=== PATIENT | male | born 1985 | race Two or more races ===

== ENCOUNTER 2017-03-27 23:34 | Emergency (ER) | payer BC, MEDICAID ==
[2017-03-28] MEDS ORDERED: NS 0.9% 1000 ML* 2,000 ML IV ONE (01:17)
[2017-03-28] MEDS ORDERED: Ketorolac INJ* 30 MG/ML 1 ML VIAL IV ONE (01:17)
[2017-03-28] MEDS ORDERED: Ondansetron INJ* 2 MG/ML VIAL IV ONE (01:17)
[2017-03-28 03:21] LABS: Hematocrit 40 % (42-52); Hemoglobin 13.9 g/dl (14.0-18.0); Mean Corpuscular HGB Conc 35 g/dl (31-36); Mean Corpuscular Hemoglobin 27 pg (27-31); Mean Corpuscular Volume 78 fL (80-94); Mean Platelet Volume 9 um3 (7.4-10.4); Red Blood Count 5.15 10^6/ul (4.0-5.4); Red Cell Distribution Width 13 % (10.5-15); White Blood Count 9.5 10^3/ul (3.5-10.8)
[2017-03-28] MEDS ORDERED: Cyclobenzaprine TAB* 10 MG PO ONE (03:32)
[2017-03-28 03:35] LABS: BUN/Creatinine Ratio 11.3 (8-20); C Reactive Protein 1.07 mg/L (< 5.00); EGFR African American 106.2 (>60); EGFR Non-African American 82.6 (>60); Globulin 2.4 g/dL (2-4); Potassium 3.5 mmol/L (3.5-5.0); Total Bilirubin 0.5 mg/dL (0.2-1.0); Total Protein 6.4 g/dL (6.4-8.9)
[2017-03-28 03:57] LABS: Urine Bilirubin Negative (Negative); Urine Glucose Negative (Negative); Urine Nitrite Negative (Negative)
--- NOTE | 2017-03-28 04:05 | ED ---
Blair Chávez Angela, scribed for Demetra Hauser MD on 03/28/17 at 0118 . Back Pain - HPI Summary HPI Summary: This pt is a 31 y/o male presenting to [facility] c/o intermittent left low back pain , worse today. Over the last 3 weeks he has had dysuria, described as lightly achy. Today, pt reports 2 episodes of sharp pain. His pain is aggravated with movements. Pt denies unprotected sex with female partners. He notes his urine is dark. Pt currently has no PCP. Pt smoked marijuana and drinks alcohol socially. - History of Current Complaint Chief Complaint: EDFlankPain Stated Complaint: LEFT SHARP FLANK PAIN Time Seen by Provider: 03/28/17 01:13 Hx Obtained From: Patient Onset/Duration: Lasting Weeks Onset/Duration: Started Weeks Ago Timing: Lasting Weeks Pain Intensity: 4 Character: Aching Aggravating Symptom(s): Movement Alleviating Symptom(s): Nothing Associated Signs And Symptoms: Positive: Flank Pain - left sided. Negative: Weakness, Numbness, Tingling - Allergies/Home Medications Allergies/Adverse Reactions: Allergies Allergy/AdvReac Type Severity Reaction Status Date / Time Sulfamethoxazole Allergy Severe Unknown Verified 12/27/14 19:09 w/Trimethoprim Reaction [From ] Details Chocolate Allergy Hives Verified 12/27/14 19:07 PMH/Surg Hx/FS Hx/Imm Hx Endocrine/Hematology History: Denies: Hx Diabetes, Hx Thyroid Disease Cardiovascular History: Denies: Hx Hypertension Respiratory History: Reports: Hx Asthma Denies: Hx Chronic Obstructive Pulmonary Disease (COPD) GI History: Denies: Hx Ulcer Infectious Disease History: No Infectious Disease History: Denies: Hx Clostridium Difficile, Hx Hepatitis, Hx Human Immunodeficiency Virus (HIV), Hx of Known/Suspected MRSA, Hx Shingles, Hx Tuberculosis, Hx Known/ Suspected VRE, Hx Known/Suspected VRSA, History Other Infectious Disease, Traveled Outside the [place] in Last 30 Days - Family History Known Family History: Positive: Diabetes - Social History Occupation: Employed Full-time - IT Alcohol Use: Weekly Substance Use Type: Reports: Marijuana Substance Use Comment - Amount & Last Used: frequently Smoking Status (MU): Never Smoked Tobacco Review of Systems Negative: Fever, Chills Negative: Palpitations, Chest Pain Negative: Shortness Of Breath Negative: Abdominal Pain Positive: dysuria, flank pain - left sided Skin: Negative Negative: Headache All Other Systems Reviewed And Are Negative: Yes Physical Exam Triage Information Reviewed: Yes Vital Signs On Initial Exam: Initial Vitals Temp Pulse Resp BP Pulse Ox 98.3 F 66 16 141/78 99 03/28/17 00:02 03/28/17 00:02 03/28/17 00:02 03/28/17 00:02 03/28/17 00:02 Vital Signs Reviewed: Yes Appearance: Positive: Well-Appearing, No Pain Distress Skin: Positive: Warm, Skin Color Reflects Adequate Perfusion, Dry Eyes: Positive: EOMI, VILMA ENT: Positive: Pharynx normal, TMs normal Neck: Positive: Supple, Nontender Respiratory/Lung Sounds: Positive: Clear to Auscultation, Breath Sounds Present. Negative: Rhonchi, Wheezes, Other - rales Cardiovascular: Positive: RRR. Negative: Murmur, Rub, Other - gallop Abdomen Description: Positive: Nontender, Soft. Negative: Distended, Guarding, Other: - rebound Musculoskeletal: Positive: Strength/ROM Intact, Other - L1-L3 paraspinal muscle tenderness.. Negative: Edema Left, Edema Right Neurological: Positive: Sensory/Motor Intact, Alert, Oriented to Person Place, Time, CN Intact II-III Psychiatric: Positive: Affect/Mood Appropriate - Tam Coma Scale Coma Scale Total: 15 Diagnostics - Vital Signs Vital Signs Temp Pulse Resp BP Pulse Ox 03/28/17 01:00 64 99 03/28/17 00:57 60 99 03/28/17 00:54 110/60 03/28/17 00:02 98.3 F 66 16 141/78 99 - Laboratory Lab Results: Lab Results 03/28/17 03/28/17 03/28/17 Range/Units 03:05 03:05 03:40 WBC 9.5 (3.5-10.8) 10^3/ul RBC 5.15 (4.0-5.4) 10^6/ul Hgb 13.9 L (14.0-18.0) g/dl Hct 40 L (42-52) % MCV 78 L (80-94) fL MCH 27 (27-31) pg MCHC 35 (31-36) g/dl RDW 13 (10.5-15) % Plt Count 203 (150-450) 10^3/ul MPV 9 (7.4-10.4) um3 Neut % (Auto) 62.1 (38-83) % Lymph % (Auto) 29.9 (25-47) % [place] % (Auto) 5.1 (1-9) % Eos % (Auto) 1.9 (0-6) % Baso % (Auto) 1.0 (0-2) % Absolute Neuts (auto) 5.9 (1.5-7.7) 10^3/ul Absolute Lymphs (auto) 2.8 (1.0-4.8) 10^3/ul Absolute Monos (auto) 0.5 (0-0.8) 10^3/ul Absolute Eos (auto) 0.2 (0-0.6) 10^3/ul Absolute Basos (auto) 0.1 (0-0.2) 10^3/ul Absolute Nucleated RBC 0.01 10^3/ul Nucleated RBC % 0.1 Sodium 136 (133-145) mmol/L Potassium 3.5 (3.5-5.0) mmol/L Chloride 106 (101-111) mmol/L Carbon Dioxide 26 (22-32) mmol/L Anion Gap 4 (2-11) mmol/L BUN 12 (6-24) mg/dL Creatinine 1.06 (0.67-1.17) mg/dL Est GFR ( Amer) 106.2 (>60) Est GFR (Non-Af Amer) 82.6 (>60) BUN/Creatinine Ratio 11.3 (8-20) Glucose 104 H (70-100) mg/dL Calcium 9.0 (8.6-10.3) mg/dL Total Bilirubin 0.50 (0.2-1.0) mg/dL AST 22 (13-39) U/L ALT 32 (7-52) U/L Alkaline Phosphatase 27 L (34-104) U/L C-Reactive Protein 1.07 (< 5.00) mg/L Total Protein 6.4 (6.4-8.9) g/dL Albumin 4.0 (3.2-5.2) g/dL Globulin 2.4 (2-4) g/dL Albumin/Globulin Ratio 1.7 (1-3) Lipase 16 (11.0-82.0) U/L Urine Color Yellow Urine Appearance Clear Urine pH 7.0 (5-9) Ur Specific [place] 1.013 (1.010-1.030) Urine Protein Negative (Negative) Urine Ketones Negative (Negative) Urine Blood Negative (Negative) Urine Nitrate Negative (Negative) Urine Bilirubin Negative (Negative) Urine Urobilinogen Negative (Negative) Ur Leukocyte Esterase Negative (Negative) Urine Glucose Negative (Negative) Result Diagrams: 03/28/17 03:05 03/28/17 03:05 Lab Statement: Any lab studies that have been ordered have been reviewed, and results considered in the medical decision making process. - CT Abd/Pel CT CT Interpretation: No Acute Changes - IMPRESSION: No nephrolithiasis, ureterolithiasis, or obstructive uropathy. No bladder calculi. Unremarkable pancreas and gallbladder. No bowel obstruction, colitis, free fluid or free air. Normal appendix. ED physician has reviewed this radiology report and agrees. CT Interpretation Completed By: Radiologist Back Pain Course/Dx - Course Course Of Treatment: 31 yo with left flank pain did have ttp over l1-l4 paraspinal on left ct and labs neg home with muscle relaxers and naprosyn - Diagnoses Provider Diagnoses: Lumbar strain Discharge - Discharge Plan Condition: Stable Disposition: HOME Prescriptions: Cyclobenzaprine TAB* [Flexeril 10 MG TAB*] 10 mg PO TID PRN #30 tab PRN Reason: Spasms Naproxen [Naprosyn 500 mg] 500 mg PO BID PRN #14 tab PRN Reason: Pain The documentation as recorded by the Blair azul Angela accurately reflects the service I personally performed and the decisions made by me, Demetra Hauser MD.
[2017-03-28 05:02] VITALS: BP 101/61
--- NOTE | 2017-03-28 07:59 | RAD ---
Indication: Flank pain. CT of the abdomen and pelvis was performed without oral or IV contrast administration. Coronal and sagittal reconstructed images were obtained. The lung bases demonstrate no pleural fluid, nodules or masses. Heart is of normal size without evidence of pericardial effusion. Liver is normal in size. No focal lesions or intrahepatic ductal dilatation is noted. The gallbladder demonstrates no calcified gallstones. No pericholecystic fluid or wall thickening is identified. The pancreas demonstrates no mass or pancreatic duct dilatation. The common duct is not dilated. The spleen is normal in size. No adrenal masses are noted. The kidneys demonstrate no hydronephrosis. No retroperitoneal lymphadenopathy is noted. CT of the pelvis demonstrates no retroperitoneal or pelvic lymphadenopathy. Urinary bladder is unremarkable. No hernias are noted. No dilated loops of bowel are noted. No hernias are identified. No pelvic adenopathy is noted. The urinary bladder is unremarkable. IMPRESSION: No evidence of obstructive uropathy is noted. Normal-appearing appendix. No abnormally dilated loops of bowel are noted.
== END 2017-03-28 05:15 | disposition home or self-care (01) ==
LOC: ED 23:34
DX: S39.012A Strain of muscle, fascia and tendon of lower back, initial encounter (principal); R10.84 Generalized abdominal pain; R30.0 Dysuria; X58.XXXA Exposure to other specified factors, initial encounter; Y93.9 Activity, unspecified; Y92.9 Unspecified place or not applicable
CPT/HCPCS: 36415; 74176; 80053; 81003; 83690; 85025; 86140; 96374; 96375; 99284; A9270-GY; J1885; J2405

== ENCOUNTER 2019-03-21 02:40 | Emergency (ER) | payer BC, OTHER ==
[2019-03-21] MEDS ORDERED: Ondansetron ODT TAB* 4 MG SL ONE (05:19)
--- NOTE | 2019-03-21 05:20 | ED ---
Shortness of Breath - HPI Summary HPI Summary: This pt is a 33 Y/O M presenting to [facility] with a CC of SOB over the past couple days when he woke up or when he was trying to sleep. He states that he has a cough, headache, N/V and a fever that started on Tuesday03/19/19. He states that he has recently smoked cigarettes and states that he is asthmatic. He states that at 2230 he took his friends inhaler and used it. He states that he had no alleviation to his SOB and would cough no matter what while laying down. He also states that he has a decreased appetite. He has no alleviating factors. He states a PMHx of asthma. - History of Current Complaint Chief Complaint: EDFluSymptoms Time Seen by Provider: 03/21/19 04:42 Hx Obtained From: Patient Onset/Duration: Sudden Onset, Still Present Timing: Constant Current Severity: Moderate Dyspnea At: Other - lying down Aggravating Factors: Other - lying down Alleviating Factors: Nothing Associated Signs & Symptoms: Cough (Nonproductive), Chills - Allergy/Home Medications Allergies/Adverse Reactions: Allergies Allergy/AdvReac Type Severity Reaction Status Date / Time sulfamethoxazole Allergy Severe Anaphylatic Verified 03/21/19 04:20 [From ] Shock trimethoprim [From ] Allergy Severe Anaphylatic Verified 03/21/19 04:20 Shock chocolate flavor Allergy Hives Verified 03/21/19 04:20 Home Medications: Home Medications Albuterol HFA INHALER* [Ventolin HFA Inhaler*] 2 puff INH Q4H PRN 03/21/19 [ History Confirmed 03/21/19] PMH/Surg Hx/FS Hx/Imm Hx Previously Healthy: Yes Endocrine/Hematology History: Denies: Hx Diabetes, Hx Thyroid Disease Cardiovascular History: Denies: Hx Hypertension Respiratory History: Reports: Hx Asthma Denies: Hx Chronic Obstructive Pulmonary Disease (COPD) GI History: Denies: Hx Ulcer Infectious Disease History: No Infectious Disease History: Denies: Hx Clostridium Difficile, Hx Hepatitis, Hx Human Immunodeficiency Virus (HIV), Hx of Known/Suspected MRSA, Hx Shingles, Hx Tuberculosis, Hx Known/ Suspected VRE, Hx Known/Suspected VRSA, History Other Infectious Disease, Traveled Outside the [place] in Last 30 Days - Family History Known Family History: Positive: Diabetes - Social History Alcohol Use: Weekly Alcohol Amount: socially Substance Use Type: Reports: Marijuana Substance Use Comment - Amount & Last Used: frequently Smoking Status (MU): Current Some Day Smoker Review of Systems Positive: Fever, Chills Positive: Shortness Of Breath, Cough Positive: Vomiting, Nausea Positive: Headache Psychological: Other - decreased appetite All Other Systems Reviewed And Are Negative: Yes Physical Exam - Summary Physical Exam Summary: Constitutional: Well-developed, Well-nourished, Alert. (-) Distressed Skin: Warm, Dry HENT: Normocephalic; Atraumatic Eyes: Conjunctiva normal Neck: Musculoskeletal ROM normal neck. (-) JVD, (-) Stridor, (-) Nuchal rigidity Cardio: Rhythm regular, rate normal, Heart sounds normal; Intact distal pulses; Radial pulses are 2+ and symmetric. (-) Murmur Pulmonary/Chest wall: Effort normal. (-) Respiratory distress, (-) Wheezes, (-) Rales Abd: Soft, (-) tenderness, (-) Distension, (-) Guarding, (-) Rebound Musculoskeletal: (-) Edema Lymph: (-) Cervical adenopathy Neuro: Alert, Oriented x3 Psych: Mood and affect Normal Triage Information Reviewed: Yes Vital Signs On Initial Exam: Initial Vitals Temp Pulse Resp BP Pulse Ox 98 F 77 20 153/94 99 03/21/19 02:44 03/21/19 02:44 03/21/19 02:44 03/21/19 02:44 03/21/19 02:44 Vital Signs Reviewed: Yes Diagnostics - Vital Signs Vital Signs Temp Pulse Resp BP Pulse Ox 03/21/19 02:44 98 F 77 20 153/94 99 - Laboratory Result Diagrams: 03/21/19 04:51 03/21/19 04:51 Lab Statement: Any lab studies that have been ordered have been reviewed, and results considered in the medical decision making process. Course/Dx - Course Course Of Treatment: This pt is a 33 Y/O M presenting to [facility] with a CC of SOB over the past couple days when he woke up or when he was trying to sleep. He states that he has a cough, headache, N/V and a fever that started on Tuesday. He states that he has recently smoked cigarettes and states that he is asthmatic. He has no abnormalities on his PE. He will be discharged home with a Dx of asthma and N/V due to his normal labratory values. - Diagnoses Provider Diagnoses: N&V (nausea and vomiting), Asthma Discharge ED - Sign-Out/Discharge Documenting (check all that apply): Patient Departure Patient Received Moderate/Deep Sedation with Procedure: No - Discharge Plan Condition: Good Disposition: HOME Prescriptions: Albuterol HFA INHALER* [Ventolin HFA Inhaler*] 1 - 2 puff INH Q4H PRN #1 mdi PRN Reason: Sob/Wheezing Patient Education Materials: Asthma (ED), How to Stop Smoking (ED), Acute Nausea and Vomiting (ED) Forms: *Work Release Referrals: [facility] [Outside] - Billing Disposition and Condition Condition: GOOD Disposition: Home - Attestation Statements Document Initiated by Duarte: Yes Documenting Scribe: Nate Rodríguez Provider For Whom Duarte is Documenting (Include Credential): Endy Jensen MD Scribe Attestation: Nate Chávez, scribed for Endy Jensen MD on 03/21/19 at 0759. Scribe Documentation Reviewed: Yes Provider Attestation: The documentation as recorded by the Nate azul accurately reflects the service I personally performed and the decisions made by , Endy Jensen MD Status of Scribe Document: Viewed
[2019-03-21 06:02] LABS: HIV 4th Generation Nonreactive (Nonreactive)
[2019-03-21 06:17] LABS: ABS Basophils 0.1 10^3/ul (0-0.2); ABS Eosinophils 0.2 10^3/ul (0-0.6); ABS Lymphocytes 2.6 10^3/ul (1.0-4.8); ABS Monocytes 0.5 10^3/ul (0-0.8); Eosinophil % 2.6 %; Hematocrit 45 % (42-52); Hemoglobin 15.4 g/dL (14.0-18.0); Lymphocyte % 30.9 %; Mean Corpuscular HGB Conc 34 g/dL (31-36); Mean Corpuscular Hemoglobin 28 pg (27-31); Mean Corpuscular Volume 81 fL (80-94); Mean Platelet Volume 8.5 fL (7.4-10.4); Nucleated Red Blood Cells % 0.1; Platelet Count 201 10^3/uL (150-450); Red Blood Count 5.59 10^6 /uL (4.18-5.48); Red Cell Distribution Width 14 % (10-15); White Blood Count 8.3 10^3/uL (3.5-10.8)
[2019-03-21 06:28] LABS: Albumin 4.4 g/dL (3.2-5.2); Albumin/Globulin Ratio 2.1 (1-3); BUN/Creatinine Ratio 14.2 (8-20); Calcium 9.2 mg/dL (8.6-10.3); EGFR African American 98.6 (>60); EGFR Non-African American 81.5 (>60); Globulin 2.1 g/dL (2-4); Indirect Bilirubin 0.4 mg/dL (0.3-1.0); Total Bilirubin 0.5 mg/dL (0.2-1.0); Total Protein 6.5 g/dL (6.4-8.9)
[2019-03-21 07:05] VITALS: BP 112/60
== END 2019-03-21 07:04 | disposition home or self-care (01) ==
LOC: ED 02:40
DX: J45.909 Unspecified asthma, uncomplicated (principal); R11.2 Nausea with vomiting, unspecified; F17.200 Nicotine dependence, unspecified, uncomplicated; Z88.2 Allergy status to sulfonamides; Z88.8 Allergy status to other drugs, medicaments and biological substances
CPT/HCPCS: 36415; 80048; 80076; 83690; 85025; 87389; 99282; A9270-GY

== ENCOUNTER 2019-06-30 21:12 | Emergency (ER) | payer BC ==
[2019-06-30] MEDS ORDERED: Ciprofloxacin 0.3% OPTH.SOL* BTL BOTH EYES ONE (21:40)
[2019-06-30] MEDS ORDERED: Albuterol 2.5 MG/3 ML NEB.SOL* (0.083%) INH ONE (21:41)
[2019-06-30] MEDS ORDERED: Lidocaine 1% MPF ** 5 ML VIAL INJ ONE (21:42)
[2019-06-30 21:53] LABS: ABS Eosinophils 0.2 10^3/ul (0-0.6); ABS Lymphocytes 1.9 10^3/ul (1.0-4.8); ABS Neutrophils 10.9 10^3/ul (1.5-7.7); Eosinophil % 1.6 %; Hematocrit 40 % (42-52); Lymphocyte % 13.6 %; Mean Corpuscular HGB Conc 35 g/dL (31-36); Mean Corpuscular Hemoglobin 28 pg (27-31); Mean Corpuscular Volume 79 fL (80-94); Mean Platelet Volume 7.7 fL (7.4-10.4); Platelet Count 222 10^3/uL (150-450); Red Blood Count 5.08 10^6 /uL (4.18-5.48); Red Cell Distribution Width 13 % (10-15)
--- NOTE | 2019-06-30 21:57 | ED ---
Complex/Multi-Sys Presentation - HPI Summary HPI Summary: 33 year old male presents with left-sided neck abscess for past couple days. He states that he has had a mass there for the past year and that it increased in pain for the past couple days ago. He was seen at urgent care and then went to [facility]. They diagnosed with abscess and needle aspirated it. He states that since then he states he has develop increased redness and warmth to the area. He was placed on cefidnir here by urgent care for an ear infection. He states that he started developing discharge and crustiness on bilateral eyes today. He also has sinus congestion and sore throat. Admits occasional cough. He admits to short of breath as has history of asthma. No bowel pain. No nausea vomiting. No known fever. - History Of Current Complaint Chief Complaint: EDRashSkinAbscess Time Seen by Provider: 06/30/19 21:32 - Allergies/Home Medications Allergies/Adverse Reactions: Allergies Allergy/AdvReac Type Severity Reaction Status Date / Time sulfamethoxazole Allergy Severe Anaphylatic Verified 06/30/19 21:23 [From ] Shock trimethoprim [From ] Allergy Severe Anaphylatic Verified 06/30/19 21:23 Shock chocolate flavor Allergy Hives Verified 06/30/19 21:23 PMH/Surg Hx/FS Hx/Imm Hx Endocrine/Hematology History: Denies: Hx Diabetes, Hx Thyroid Disease Cardiovascular History: Denies: Hx Hypertension Respiratory History: Reports: Hx Asthma Denies: Hx Chronic Obstructive Pulmonary Disease (COPD) GI History: Denies: Hx Ulcer Infectious Disease History: No Infectious Disease History: Denies: Hx Clostridium Difficile, Hx Hepatitis, Hx Human Immunodeficiency Virus (HIV), Hx of Known/Suspected MRSA, Hx Shingles, Hx Tuberculosis, Hx Known/ Suspected VRE, Hx Known/Suspected VRSA, History Other Infectious Disease, Traveled Outside the [place] in Last 30 Days - Family History Known Family History: Positive: Diabetes - Social History Alcohol Use: Weekly Alcohol Amount: socially Substance Use Type: Reports: Marijuana Substance Use Comment - Amount & Last Used: frequently Smoking Status (MU): Current Some Day Smoker Review of Systems Negative: Fever Positive: Drainage, Erythema Positive: Sore Throat, Nasal Discharge Positive: Cough Positive: Rash All Other Systems Reviewed And Are Negative: Yes Physical Exam Triage Information Reviewed: Yes Vital Signs On Initial Exam: Initial Vitals Temp Pulse Resp BP Pulse Ox 99.9 F 100 16 130/81 100 06/30/19 21:17 06/30/19 21:17 06/30/19 21:17 06/30/19 21:17 06/30/19 21:17 Vital Signs Reviewed: Yes Appearance: Positive: Well-Appearing Skin: Positive: Warm, Dry Head/Face: Positive: Normal Head/Face Inspection Eyes: Positive: EOMI, VILMA, Conjunctiva Inflammed, Discharge - yellow ENT: Positive: Pharyngeal erythema, TMs normal, Uvula midline, Other - soft palate symmetric. Negative: Tonsillar swelling, Tonsillar exudate, Trismus, Muffled voice Neck: Positive: Other: - 2cm by 3cm erythema and loculated mass on left side of neck Respiratory/Lung Sounds: Positive: Clear to Auscultation, Breath Sounds Present Cardiovascular: Positive: Normal, RRR Abdomen Description: Positive: Nontender, Soft Bowel Sounds: Positive: Present Musculoskeletal: Positive: Normal Neurological: Positive: Normal Psychiatric: Positive: Normal Procedures - Sedation Patient Received Moderate/Deep Sedation with Procedure: No - Incision and Drainage neck Site: left side neck Anesthesia: Local Instrument(s): Scalpel Diagnostics - Vital Signs Vital Signs Temp Pulse Resp BP Pulse Ox 06/30/19 21:17 99.9 F 100 16 130/81 100 - Laboratory Result Diagrams: 06/30/19 21:46 06/30/19 21:46 Lab Statement: Any lab studies that have been ordered have been reviewed, and results considered in the medical decision making process. Complex Multi-Symp Course/Dx Course Of Treatment: 33 year old male presents with left-sided neck abscess for past couple days. He states that he has had a mass there for the past year and that it increased in pain for the past couple days ago. He was seen at urgent care and then went to [facility]. They diagnosed with abscess and needle aspirated it. He states that since then he states he has develop increased redness and warmth to the area. He was placed on cefidnir here by urgent care for an ear infection. He states that he started developing discharge and crustiness on bilateral eyes today. He also has sinus congestion and sore throat. Admits occasional cough. He admits to short of breath as has history of asthma. No bowel pain. No nausea vomiting. No known fever. On exam has injected conjunctiva with yellow discharge. will treat with cipro. He has area of erythema and induration on left-sided neck with possible area of flutuance. Pharynx erythematous. Lungs CTA. attempted I&D and got minimial drainage of the area as feels more like induration at this time. will place on doxycycline. gave referral to surgery. flu neg. wbc 14. crp elevated. lactic normal. believe that wbc elevation is likely due from viral syndrome rather thatn the abscess. will give magic mouth wash for sore throat. told follow up with surgery for wound check. patient understand and agrees with plan. - Diagnoses Differential Diagnoses/HQI/PQRI: Sepsis, Other - abscess, influenza Provider Diagnoses: Conjunctivitis, Abscess, neck, Upper respiratory infection Discharge ED - Sign-Out/Discharge Documenting (check all that apply): Patient Departure - Discharge Plan Condition: Good Disposition: HOME Prescriptions: Albuterol 2.5MG/3ML (0.083%)* [Ventolin 2.5 MG/3 ML NEB.SAPPHIRE*] 2.5 mg INH Q6H # 20 neb.sapphire DOXYcycline CAP(*) [DOXYcycline 100MG CAP(*)] 100 mg PO BID #19 cap Magic Mouth Was-RONDA/MAAL/LIDO* 5 ml SWISH SPIT QID #100 ml Patient Education Materials: Upper Respiratory Infection (DC), Abscess (ED) Referrals: [facility] [Outside] [facility] [place] [facility] [Outside] Puma Reyna MD [Medical Doctor] - Additional Instructions: apply heat to area take doxycycline twice a day for [address] 1 drop cipro in eye four times a day for 7 days use magic mouth wash 5ml four times a day take ibuprofen every 6 hours for pain use albuterol every 6 hours for cough Wash hands after touching eye Follow up with primary or [facility] follow up with surgery Return to ED if develop any new or worsening symptoms - Billing Disposition and Condition Condition: GOOD Disposition: Home
[2019-06-30 22:08] LABS: Albumin 4.1 g/dL (3.2-5.2); Albumin/Globulin Ratio 1.4 (1-3); BUN/Creatinine Ratio 11.2 (8-20); C Reactive Protein 76.43 mg/L (<8.01); Calcium 9.1 mg/dL (8.6-10.3); EGFR African American 107.9 (>60); EGFR Non-African American 89.2 (>60); Globulin 2.9 g/dL (2-4); Potassium 3.7 mmol/L (3.5-5.0); Total Bilirubin 0.5 mg/dL (0.2-1.0)
[2019-06-30 22:24] LABS: Influenza A Molecular NEGATIVE (Negative); Influenza B Molecular NEGATIVE (Negative)
[2019-06-30] MEDS ORDERED: DOXYcycline CAP(*) 100 MG PO ONE (22:40)
[2019-06-30] MEDS ORDERED: Lidocaine 2% VISCOUS* 15 ML UDC PO ONE (23:01)
[2019-06-30 23:27] VITALS: BP 114/69
== END 2019-06-30 23:15 | disposition home or self-care (01) ==
LOC: ED 21:12
DX: L02.11 Cutaneous abscess of neck (principal); H10.9 Unspecified conjunctivitis; J06.9 Acute upper respiratory infection, unspecified; F17.200 Nicotine dependence, unspecified, uncomplicated; Z88.1 Allergy status to other antibiotic agents; Z88.2 Allergy status to sulfonamides
CPT/HCPCS: 10060; 36415; 80053; 85025; 86140; 86308; 99283; A9270-GY